=== PATIENT | female | born 1990 | race Caucasian/White ===

== ENCOUNTER → 2024-05-15 10:14 | Outpatient (REF) | payer OTHER, SELFPAY | LOC: HWRAD 10:14 | PROVIDERS: ATTENDING PHYSICIAN Internal Medicine Critical Care Medicine; FAMILY PHYSICIAN Physician Assistant Medical | DX: J18.9 Pneumonia, unspecified organism (principal) | CPT/HCPCS: 71046 ==

== ENCOUNTER → 2024-07-20 10:07 | Outpatient (REF) | payer OTHER, SELFPAY | LOC: HWLAB 10:07 | PROVIDERS: ATTENDING PHYSICIAN Internal Medicine Critical Care Medicine; FAMILY PHYSICIAN Physician Assistant Medical | DX: J06.9 Acute upper respiratory infection, unspecified (principal); R05.8 Other specified cough | CPT/HCPCS: 71046; 87205 ==